=== PATIENT | female | born 1995 | race Caucasian/White ===

== ENCOUNTER 2016-11-29 08:33 | Inpatient (IN) | payer OTHER, MEDICAID ==
[~2016-11-29] VITALS: Ht 167.6 cm; Wt 97.0 kg
--- NOTE | ~2016-11-29 | OR ---
PATIENT'S NAME: FAINA MCADAMS [facility] AGE: 21 [address] ROOM: [address] [id number] LOCATION: GOBS ADMIT DATE: 11/29/2016 OR/Procedure Report DISCHARGE DATE: FAMILY PHYSICIAN: Patsy Anderson MD ATTENDING PHYSICIAN: Patsy Anderson SURGEON: Patsy Anderson MD REVENUE MANAGER: DATE OF PROCEDURE: 11/30/2016 DIAGNOSES: 1. Spontaneous vaginal delivery of a term female. 2. Labor epidural. 3. Rupture of membranes greater than 24 hours. DESCRIPTION OF PROCEDURE: The patient is a 21-year-old, 1, para 0, at 37 and 6 days who came in yesterday with spontaneous rupture of membranes at 0600 hours. She had an uncomplicated . She was leaking clear fluid at the time of admission. Cervix is 1 cm, thick and -3. She had no cervical change for 8 hours so Pitocin was began. Pitocin progressed per protocol. When the patient got toward the end of labor course, she did have some deep variable decelerations, so Pitocin was shut off. Pitocin was restarted at 5:30 a.m. The patient began pushing at 0600 hours. Baby was delivered over a second-degree episiotomy in the OA presentation. Baby was suctioned. Cord was doubly clamped. Cord was cut by the grandmother. Baby was handed off to nursery staff for stimulation. Cord blood was obtained. Placenta delivered spontaneously and intact. The placenta was warm and baby did have temperature, so cultures of the placenta were done. Second-degree episiotomy was repaired with 2-0 Vicryl in routine fashion. At this time, baby was taken back to the NICU as her oxygenation did not appear to be matching baby's assessment as baby actually looks nice and pink and seems to be doing well. Peds will resume care of the . At this time, weight has not been done and score were 8 and 9. MD HARITHA EDWARDS/timmy /[id number] d: 11/30/16 1214 t: 12/21/16 1329, OPERATIVE SUMMARY
[2016-11-29] MEDS ORDERED: TUMS200 MG PO (09:19)
[2016-11-29 11:52] LABS: BASOPHIL % 0.2 %; EOSINOPHIL % 0.2 %; HEMATOCRIT 35.9 % (33.0-46.0); HEMOGLOBIN 11.9 g/dL (11.0-15.0); IMMATURE GRANULOCYTE # 0.1 K/uL (0.0-0.3); IMMATURE GRANULOCYTE % 0.7 %; LYMPHOCYTE # 1.8 K/uL (0.8-4.0); LYMPHOCYTE % 13.2 %; MCH 27.2 pg (27.0-34.0); MCHC 33.1 gm/dL (32.0-36.5); MCV 82.2 fl (83.0-98.0); MONOCYTE # 0.7 K/uL (0.0-1.0); MONOCYTE % 5.1 %; MPV 12.2 fl (9.4-12.4); NEUTROPHIL # (ANC) 10.7 K/uL (1.8-7.8); NEUTROPHIL % 80.6 %; NRBC % 0 /100WBC (0-0.00); PLATELET COUNT 244 K/uL (150-450); RBC 4.37 M/uL (3.50-5.00); RDW-CV 14.3 % (11.9-14.6); WBC 13.3 K/uL (4.0-11.0)
[2016-11-30 08:32] LABS: BICARBONATE 22.8 mmol/L (18.0-23.0); PCO2 47 mmHg (35-45); PO2 25 mmHg (80-90)
[2016-12-01 04:57] LABS: BASOPHIL % 0.2 %; EOSINOPHIL # 0.1 K/uL (0.0-0.5); EOSINOPHIL % 0.9 %; HEMATOCRIT 27.8 % (33.0-46.0); HEMOGLOBIN 8.8 g/dL (11.0-15.0); IMMATURE GRANULOCYTE # 0.1 K/uL (0.0-0.3); IMMATURE GRANULOCYTE % 0.6 %; LYMPHOCYTE # 2.3 K/uL (0.8-4.0); LYMPHOCYTE % 18.7 %; MCH 26.2 pg (27.0-34.0); MCHC 31.7 gm/dL (32.0-36.5); MCV 82.7 fl (83.0-98.0); MONOCYTE # 0.8 K/uL (0.0-1.0); MONOCYTE % 6.4 %; MPV 11.6 fl (9.4-12.4); NEUTROPHIL % 73.2 %; NRBC % 0 /100WBC (0-0.00); RBC 3.36 M/uL (3.50-5.00); RDW-CV 14.7 % (11.9-14.6); WBC 12.3 K/uL (4.0-11.0)
[2016-12-01 04:58] LABS: PLATELET COUNT 177 K/uL (150-450)
[2016-12-02] MEDS ORDERED: SURFAK240 MG PO (13:56)
[2016-12-02] MEDS ORDERED: APNO TOP (13:57)
[2016-12-02] MEDS ORDERED: PRENATAL 1+1)(P1 TAB PO (13:57)
[2016-12-02] MEDS ORDERED: PERCOCET 5-3251 EACH PO (13:58)
[2016-12-02] MEDS ORDERED: DERMOPLAST SPRA56 GM TOP (13:58)
[2016-12-02] MEDS ORDERED: MOTRIN800 MG PO (13:58)
[2016-12-02] MEDS ORDERED: LANSINOH7 GM TOP (13:59)
== END 2016-12-02 22:13 | disposition disaster alternative care site (69) | DRG 775 ==
LOC: GOBS 08:33 → GONC 08:33 → GOBS 08:34 → GONC 08:34 → GOBS 22:04
PROVIDERS: Family Medicine; ADMIT Family Medicine
DX: O70.1 Second degree perineal laceration during delivery (principal); Z37.0 Single live birth; Z3A.37 37 weeks gestation of pregnancy
CPT/HCPCS: J2001; J2590; J3010; J7120